=== PATIENT | female | born 1940 | race Caucasian/White ===

== ENCOUNTER 2023-09-16 10:09 | Emergency (ER) | payer MEDICARE, SELFPAY ==
[2023-09-16] VITALS (10 sets, daily range): BP systolic 194–225; BP diastolic 72–172
--- NOTE | 2023-09-16 11:11 | ED.GENMED ---
History of Present Illness
General
Chief Complaint: Blood Pressure Problem
Source: patient and family (Son)
Time Seen by Provider: 09/16/23 10:50
Travel History
Have you had any contact with someone who has COVID-19?: No
Do you have any symptoms of coronavirus? Fever > 100 degrees, chills, cough, shortness of breath, sore throat, loss of taste or smell, muscle aches, or headache?: No
History of Present Illness
History of Present Illness:
82-year-old female presents to the emergency room after being referred here from an urgent care. Patient went to urgent care for evaluation of left ear pain. While there she was found to have an elevated blood pressure with a systolic over 200.
This prompted the urgent care to send the patient to the emergency room. Patient does endorse a mild headache in addition to left ear pain. She has been having the left ear pain for a few weeks. She was treated with antibiotics by her primary and
then evaluated by ENT and treated with a second round of antibiotics. While she is on antibiotics left ear feels better. She finished her course of antibiotics yesterday or today. However her pain is returning today. She denies any focal
weakness numbness tingling. Patient states that she has had her blood pressure checked at other times when she had the ear pain and it has not been as elevated. Patient did not take her blood pressure medicine this morning prior to going to the
urgent care. She did take her medications while she was on her way here from urgent care.
Phy Exam
Physical Exam
Physical Exam:
General: Awake, Alert, Oriented X3. No acute distress.
Vitals: Hypertensive
Head: Atraumatic
Eyes: Pupils equal, EOMI
Ears: Mild erythema left ear, no bulging
Throat: Airway intact, no exudates
Neck: Trachea midline
Lungs: Clear and equal b/l
Heart: Regular rate, no murmurs
Abd: Soft, Nontender, No pulsatile mass
Neuro: Nonfocal
Skin: Warm, dry, no rash
Extremities: pulses equal b/l, no edema
Course
Orders/Labs/Results
Orders:
Orders
09/16/23 11:09
Electrocardiogram (*1) Stat
Reason for Study: Other
Other Reason for Exam: chest pain
EKG- Treatment ONCE
09/16/23 11:15
Basic Metabolic Panel Urgent
Complete Blood Count/With Diff Urgent
Urinalysis Urgent
Date Specimen was Collected: 09/16/23
Time Specimen was Collected: 11:10
Urine Microscopic Urgent
Date Specimen was Collected: 09/16/23
Time Specimen was Collected: 11:10
09/16/23 14:26
Amlodipine [Norvasc] 5 mg PO NOW STA
Abnormal Lab Results
09/16/23
11:15
Absolute Neuts (auto) 6.9 H 10^3/uL
(1.4-6.5)
Neutrophils % 77.6 H %
(42.2-75.2)
Lymphocytes % 15.7 L %
(20.5-51.1)
Carbon Dioxide 32 H mmol/L
(22-30)
Glucose 104 H mg/dl
(70-99)
Urine Occult Blood 2+ A
(Negative)
Urine RBC 3-6 A /HPF
(0-2)
09/16/23 11:15
09/16/23 11:15
Vital Signs
Initial and Last Documented VS:
Initial Vital Signs
Temp Pulse Resp BP Pulse Ox
97.6 F 63 16 209/103 98
09/16/23 10:19 09/16/23 10:19 09/16/23 10:19 09/16/23 10:19 09/16/23 10:19
Last Documented Vital Signs
Temp Pulse Resp BP Pulse Ox
97.6 F 61 16 216/81 97
09/16/23 10:19 09/16/23 14:44 09/16/23 10:19 09/16/23 14:44 09/16/23 14:45
MDM/Problems Addressed
Differential Diagnosis Includes:
Presents with controlled hypertension. Also complaint left ear pain. Ear sampling her exam is fairly benign. Blood pressure is elevated but she does not have any endorgan damage. Labs are unremarkable. She does not have proteinuria. She does
not have chest pain. Considered her ear pain being related to some kind of dissection however the pain has been present for about 5 weeks. She has been seen by ENT primary care doctor. Patient states her blood pressure was not elevated at that
time. So therefore the ear pain predates the elevated blood pressure. Additionally the patient spent the past 5 days at her son's house and she seems to believe she may have confused her medications taking only half of her medications. Will add
Norvasc for now and send her with a prescription to take until she can get her medications sorted out. Patient believes her primary care doctor will be able to see her tomorrow.
*Pulse Oximetry
Patient hypoxic: no
*EKG
Interpreted by ED Provider?: Yes
Interpretation: abnormal
Heart Rate: 57
Rate: bradycardiac
Rhythm: sinus
Interval: normal interval
QRS Pattern: normal QRS
Ischemia: no ischemia
*[employer] Interpretation
Rate: bradycardiac
Rhythm: sinus
*Critical Care Note
Total Time (30-74mins, 75-104mins- exclusive of procedures): Not Applicable
ED Attending Note
-
Portions of this chart may have been created with voice recognition software.� Occasional wrong word or��sound alike� substitutions may have occurred due to the inherent limitations of voice recognition software.
Discharge Plan
Departure
Patient Disposition: Home (Routine Discharge)
Date of Disposition: 09/16/23
Time of Disposition: 14:26
Patient with high blood pressure during this ER visit?: Yes
Condition: Good
Discharge Problem:
Uncontrolled hypertension
Instructions: High Blood Pressure (DC)
Prescriptions:
New
amlodipine [Norvasc] 5 mg tablet
5 mg PO DAILY Qty: 14 0RF
Referrals:
NONE,* [Family Provider] -
Activity Restrictions/Additional Instructions:
Please follow up with your primary care provider and your ENT doctor. I have given you a prescription of a blood pressure medication for you to take until you clear up if you are taking the prescribed blood pressure medications as you should.
Interventions
Interventions:
*Risk Screen - Suicide Last Done: 09/16/23 10:19
*General Assessment Last Done: 09/16/23 10:19
*Neglect/Abuse Screening Last Done: 09/16/23 10:19
*Nursing Disposition Last Done: 09/16/23 14:51
ED- Cardiac Assessment Last Done: 09/16/23 10:59
ED- Neurological Assessment Last Done: 09/16/23 10:59
ED- Pulmonary Assessment Last Done: 09/16/23 10:59
Discharge Date and Time
Discharge Date/Time: 09/16/23 14:56
[2023-09-16 11:25] LABS: % Basophils 0.6 % (0-2); % Eosinophils 1.2 % (0-6); % Immature Granulocytes 0.3 % (0-0.5); % Lymphocytes 15.7 % (20.5-51.1); % Monocytes 4.6 % (1.7-9.3); % Neutrophils 77.6 % (42.2-75.2); Absolute Basophils 0.1 10^3/uL (0-0.2); Absolute Eosinophils 0.1 10^3/uL (0-0.7); Absolute Lymphocytes 1.4 10^3/uL (1.2-3.4); Absolute Monocytes 0.4 10^3/uL (0.1-0.6); Absolute Neutrophils 6.9 10^3/uL (1.4-6.5); Hematocrit 38.2 % (37.0-47.0); Hemoglobin 12.6 g/dL (12.0-16.0); Nucleated Red Blood Cells % 0 %; Platelet Count 271 10^3/uL (130-400); Red Blood Cell Count 4.34 10^6/uL (4.20-5.40); Red Cell Dist. Width 12.9 % (11.5-14.5); White Blood Cell Count 8.9 10^3/uL (4.8-10.8)
[2023-09-16 11:36] LABS: Blood Urea Nitrogen 16 mg/dl (7-17); Calcium 9.8 mg/dl (8.4-10.2); Carbon Dioxide 32 mmol/L (22-30); Chloride 103 mmol/L (98-107); Glucose 104 mg/dl (70-99); Potassium 4.1 mmol/L (3.5-5.1); Sodium 137 mmol/L (135-145); eGFR > 60.00
[2023-09-16 12:45] LABS: Urine Albumin Negative (Neg - Trace); Urine Bilirubin Negative (Negative); Urine Character Clear (Clear); Urine Color Yellow; Urine Glucose Negative (Negative); Urine Ketone Negative (Negative); Urine Leukocyte Negative (Negative); Urine Nitrite Negative (Negative); Urine Occult Blood 2+ (Negative); Urine Specific Gravity 1.005 (<1.030); Urine Urobilinogen Negative (Neg - 1+)
[2023-09-16 12:53] LABS: Urine Squamous Cell 0-2 /LPF (Few); Urine Urothelial Cell 0-2 /LPF (FEW)
[2023-09-16 12:54] LABS: Urine White Cell 0-2 /HPF (0-5)
[2023-09-16] MEDS: NORVASC 5 MG PO (14:44)
== END 2023-09-16 14:56 | disposition home or self-care (01) ==
LOC: EMR 10:09
PROVIDERS: EMERGENCY PHYSICIAN Emergency Medicine
DX: I10 Essential (primary) hypertension (principal)
CPT/HCPCS: 99284; 80048; 81003; 81015; 85025; 93005